=== PATIENT | female | born 1950 | race Two or more races ===

== ENCOUNTER 2023-12-18 14:47 | Outpatient (CLI) | payer MEDICAID | END 2023-12-18 23:59 | disposition home or self-care (01) | LOC: VAS 14:47 | PROVIDERS: ATTEND Family Medicine | DX: I83.90 Asymptomatic varicose veins of unspecified lower extremity (principal); M71.22 Synovial cyst of popliteal space [Baker], left knee; M71.21 Synovial cyst of popliteal space [Baker], right knee | CPT/HCPCS: 93970 ==

== ENCOUNTER 2024-05-16 15:57 | Outpatient (CLI) | payer MEDICAID | END 2024-05-16 23:59 | disposition home or self-care (01) | LOC: RAD 15:57 | PROVIDERS: ATTEND Family Medicine | DX: M25.512 Pain in left shoulder (principal) | CPT/HCPCS: 73030 ==